=== PATIENT | male | born 1975 | race Caucasian/White ===

== ENCOUNTER 2020-10-16 11:37 | Emergency (ER) | payer MEDICAID ==
[~2020-10-16] VITALS: Ht 180.3 cm; Wt 88.9 kg
[2020-10-16] MEDS ORDERED: FLOVENT DISKU100 MCG INH (11:55)
[2020-10-16] MEDS ORDERED: BUSPIRONE HCL10 MG PO (11:55)
[2020-10-16] MEDS ORDERED: PROAIR HFA8.5 GM INH (11:55)
[2020-10-16] MEDS ORDERED: VALPROIC A250 MG/51 PO (11:56)
[2020-10-16] MEDS ORDERED: LISINOPRIL20 MG PO (11:56)
[2020-10-16] MEDS ORDERED: PREDNISOLONE ACE5 ML LT. EYE (11:56)
[2020-10-16] MEDS ORDERED: HYDROXYZINE PA100 MG PO (11:57)
[2020-10-16] MEDS ORDERED: CELEXA 20 MG TA20 MG PO (11:57)
[2020-10-16] MEDS ORDERED: NORCO5 PO ×2 (12:05→13:14)
[2020-10-16 12:29] VITALS: BP 134/104
== END 2020-10-16 12:30 | disposition home or self-care (01) ==
LOC: M.ERS 11:37
DX: M54.5 Low back pain (principal); G89.29 Other chronic pain; J45.909 Unspecified asthma, uncomplicated; Z79.899 Other long term (current) drug therapy

== ENCOUNTER 2021-03-27 22:05 | Inpatient (IN) | payer MEDICAID ==
[~2021-03-27] VITALS: Ht 180.3 cm; Wt 90.3 kg
[~2021-03-27 22:05] MED LIST: BUSPIRONE HCL10 MG PO; CELEXA 20 MG TA20 MG PO; FLOVENT DISKU100 MCG INH; HYDROXYZINE PA100 MG PO; LISINOPRIL20 MG PO; NORCO5 PO; PREDNISOLONE ACE5 ML LT. EYE; PROAIR HFA8.5 GM INH; VALPROIC A250 MG/51 PO
[2021-03-27 22:22] VITALS: BP 142/90
[2021-03-27] MEDS ORDERED: LOMOTIL TABLET1 EACH PO (22:25)
[2021-03-27 22:46] LABS: ABSOLUTE EOSINOPHILS 0.1 thou/uL (0.0-0.7); ABSOLUTE MONOCYTES 0.8 thou/uL (0.0-1.2); ABSOLUTE NEUTROPHILS 11.1 thou/uL (1.6-8.1); BASOPHILS 0.1 %; EOSINOPHILS 1.1 %; HEMATOCRIT 44.3 % (42.0-52.0); HEMOGLOBIN 14.5 gm/dL (14.0-18.0); LYMPHOCYTES 7.9 %; MCHC 32.7 g/dL (28.0-37.0); MCV 88.8 fL (80.0-100.0); MONOCYTES 6.4 %; NUCLEATED RBCS 0 /100WBC; PLATELET COUNT* 290 thou/uL (150-400); POLYS 84.5 %; RBC 4.98 mil/uL (4.50-6.00); WBC 13.1 thou/uL (4.0-11.0)
[2021-03-27 22:57] LABS: CALCIUM 9.1 mg/dL (8.5-10.1); CREATININE 1.1 mg/dL (0.6-1.3); POTASSIUM 3.9 mmol/L (3.5-5.1)
[2021-03-27 23:05] LABS: ALBUMIN 3.4 g/dL (3.4-5.0); MAGNESIUM 2.4 mg/dL (1.8-2.4); TOTAL BILIRUBIN 0.5 mg/dL (<0.1-1.0); TOTAL PROTEIN 7.5 g/dL (6.4-8.2)
[2021-03-27 23:25] LABS: INFLUENZA A ANTIGEN Negative (Negative); INFLUENZA B ANTIGEN Negative (Negative)
[2021-03-28 05:00] VITALS: BP 115/62
[2021-03-28 05:10] VITALS: BP 120/61
[2021-03-28 08:00] VITALS: BP 128/73
--- NOTE | 2021-03-28 10:47 | EKG ---
[place] [address] ELECTROCARDIOGRAM REPORT Name: RYANN CONTRERAS Room: [address] IN [facility].#: [id number] Admission: 03/28/21 Attend Phys: Nelly Miller, Discharge: Date of : 75 Date of Service: 03/27/212224 Report #: [id number] THIS REPORT FOR: //name// [facility] ED Test Date: 2021-03-27 Test Time: 22:25:33 Pat Name: RYANN CONTRERAS Department: Room: [facility] Gender: M Shoe Treer: TONG : 1975 Requested By: Elba Diaz Order Number: [id number] MD: Familia Fernandez Measurements Intervals [place] Rate: 109 P: 57 IA: 134 QRS: -59 QRSD: 86 T: 51 QT: 337 QTc: 454 Interpretive Statements Sinus tachycardia Left anterior fascicular block Abnormal R-wave progression, late transition No previous ECG available for comparison Electronically Signed On 03-28-2021 10:47:42 [employer] by Familia Fernandez [email or web address] <ELECTRONICALLY SIGNED> By: Familia Fernandez MD, FACC 03/28/21 1047 2225 2225 Familia Fernandez MD, [facility] /EPI
[2021-03-28 12:00] VITALS: BP 121/62
[2021-03-28 16:00] VITALS: BP 113/70
[2021-03-28 20:14] VITALS: BP 126/72
[2021-03-29 08:00] VITALS: BP 122/60
[2021-03-29] MEDS ORDERED: VITAMIN D325 MC2 PO (13:33)
[2021-03-29] MEDS ORDERED: HYDROCODON-ACE1 EAC7 PO (13:33)
[2021-03-29] MEDS ORDERED: VITAMIN C1000 MG PO (13:33)
[2021-03-29] MEDS ORDERED: LEVOFLOXACIN750 MG PO (13:33)
[2021-03-29 13:47] LABS: AMP/METHAMP Negative (Negative); BARBITURATES Negative (Negative); BENZODIAZEPINES Negative (Negative); COCAINE Negative (Negative); METHADONE Negative (Negative); OPIATES POSITIVE (Negative); PCP Negative (Negative); THC Negative (Negative)
[2021-03-29 15:31] VITALS: BP 122/60
== END 2021-03-29 16:21 | disposition home or self-care (01) | DRG 193 ==
LOC: M.ERS 22:05 → M.2W 03-28 00:23 → M.TBA-ER 03-28 00:23 → M.2W 03-28 04:59 → M.3W 03-28 19:26
PROVIDERS: Emergency Medicine; Physician Assistant; ADMIT Internal Medicine; ATTEND Internal Medicine
DX: J18.9 Pneumonia, unspecified organism (principal); J96.01 Acute respiratory failure with hypoxia; R65.11 Systemic inflammatory response syndrome (SIRS) of non-infectious origin with acute organ dysfunction; Z20.822 Contact with and (suspected) exposure to COVID-19; J45.909 Unspecified asthma, uncomplicated; I10 Essential (primary) hypertension; Z94.7 Corneal transplant status; Z88.0 Allergy status to penicillin; Z88.8 Allergy status to other drugs, medicaments and biological substances; Z82.49 Family history of ischemic heart disease and other diseases of the circulatory system

== ENCOUNTER 2021-04-26 10:23 | Emergency (ER) | payer MEDICAID ==
[~2021-04-26] VITALS: Ht 180.3 cm; Wt 93.0 kg
[~2021-04-26 10:23] MED LIST changes: +HYDROCODON-ACE1 EAC7 PO; +LEVOFLOXACIN750 MG PO; +LOMOTIL TABLET1 EACH PO; +VITAMIN C1000 MG PO; +VITAMIN D325 MC2 PO
[2021-04-26] MEDS ORDERED: TESSALON PERLE100 MG PO (10:57)
[2021-04-26] MEDS ORDERED: ZPAK PO (10:57)
[2021-04-26] MEDS ORDERED: PULMICORT FLEX90 MCG INH (10:57)
[2021-04-26] MEDS ORDERED: DEXAMETHASONE 44 M1 PO (10:57)
[2021-04-26 11:25] VITALS: BP 158/96
== END 2021-04-26 11:27 | disposition home or self-care (01) ==
LOC: M.ERS 10:23
DX: J45.909 Unspecified asthma, uncomplicated (principal); Z20.822 Contact with and (suspected) exposure to COVID-19; G40.909 Epilepsy, unspecified, not intractable, without status epilepticus; F32.9 Major depressive disorder, single episode, unspecified; F41.9 Anxiety disorder, unspecified; I10 Essential (primary) hypertension; Z79.899 Other long term (current) drug therapy; Z88.0 Allergy status to penicillin; Z88.8 Allergy status to other drugs, medicaments and biological substances; Z88.5 Allergy status to narcotic agent